=== PATIENT | male | born 1960 | race Caucasian/White ===

== ENCOUNTER → 2018-01-26 | Outpatient (CLI) | payer OTHER | END | disposition home or self-care (01) | LOC: OIH 09:22 | PROVIDERS: ATTEND Urology | DX: N13.2 Hydronephrosis with renal and ureteral calculous obstruction (principal); K80.20 Calculus of gallbladder without cholecystitis without obstruction; R31.29 Other microscopic hematuria | CPT/HCPCS: 74176 ==

== ENCOUNTER → 2018-03-30 | Outpatient (CLI) | payer OTHER ==
[2018-03-30 08:50] LABS: EOSINOPHILS % (AUTO) 5.2 % (0.0-8.0); HEMATOCRIT 47.5 % (42-54); LYMPHOCYTES % (AUTO) 29.4 % (21.0-51.0); MEAN CORPUSCULAR HGB CONC 33.4 g/dL (32.0-36.0); MEAN CORPUSCULAR VOLUME 86.8 fL (79-99); MONOCYTES % (AUTO) 7.2 % (3.0-13.0); NEUTROPHILS % (AUTO) 57.2 % (40.0-77.0); NUCLEATED RED BLOOD CELLS 0.1 % (0.0-0.19); PLATELET COUNT (AUTO) 198 K/uL (130-400); RED BLOOD CELL COUNT(AUTO) 5.47 MIL/uL (4.50-6.20); RED CELL DISTRIBUTION WIDTH 13.5 % (11.0-15.5); WHITE BLOOD COUNT (AUTO) 3.5 K/uL (4.8-10.8)
[2018-03-30 08:59] LABS: POTASSIUM 4.9 mmol/L (3.5-5.1)
== END | disposition home or self-care (01) ==
LOC: LAB 07:50
PROVIDERS: ATTEND Urology
DX: N20.2 Calculus of kidney with calculus of ureter (principal); R31.29 Other microscopic hematuria
CPT/HCPCS: 36415; 80048; 85025

== ENCOUNTER → 2018-04-09 | Outpatient (CLI) | payer OTHER ==
[~2018-04-09] MED LIST: IOHEXOL 350 MG/ML 100ML INFUS..BTL IV ONE
== END | disposition home or self-care (01) ==
LOC: RAH 04-02 08:03
PROVIDERS: ATTEND Urology
DX: N20.0 Calculus of kidney (principal)
CPT/HCPCS: 74400

== ENCOUNTER → 2018-05-11 | Outpatient (CLI) | payer OTHER | END | disposition home or self-care (01) | LOC: RAH 07:10 | PROVIDERS: ATTEND Urology | DX: K57.30 Diverticulosis of large intestine without perforation or abscess without bleeding (principal); N20.2 Calculus of kidney with calculus of ureter | CPT/HCPCS: 74018; 74176; 76100 ==

== ENCOUNTER → 2018-08-24 | Outpatient (CLI) | payer OTHER | END | disposition home or self-care (01) | LOC: RAH 09:55 | PROVIDERS: ATTEND Urology | DX: N20.2 Calculus of kidney with calculus of ureter (principal); K63.9 Disease of intestine, unspecified | CPT/HCPCS: 74018; 76100 ==